=== PATIENT | male | born 1985 | race Caucasian/White ===

== ENCOUNTER 2023-07-02 10:27 | Outpatient (CLI) | payer BC, SELFPAY ==
[2023-07-02 11:02] LABS: Hematocrit 45.2 % (42.0-52.0); Hemoglobin 15.4 g/dL (14.0-18.0); Mean Corpuscular HGB Conc 34.1 g/dl (32-36); Mean Corpuscular Volume 90.9 fl (80-100); Mean Platelet Volume 9.2 fl (7.4-10.4); Platelet Count Result 303 k/mm3 (150-375); Red Blood Count 4.97 M/mm3 (4.6-6.20); Red Cell Distribution Width 12.4 % (11.5-14.5); White Blood Count 5.9 K/mm3 (4.5-10.0)
[2023-07-02 11:12] LABS: Hemoglobin A1C 5.6 % (<5.7)
[2023-07-02 11:15] LABS: Alanine Aminotransferase 48 U/L (6-50); Albumin Level 4.7 g/dL (3.5-5.1); Alkaline Phosphatase 49 U/L (38-126); Anion Gap 7 mmol/L (4-12); Aspartate Amino Transferase 32 U/L (17-59); Bilirubin,Total 0.7 mg/dL (0.2-1.3); Blood Urea Nitrogen 13 mg/dL (9-20); Calcium 9.6 mg/dL (8.4-10.2); Carbon Dioxide 27 mmol/L (22-30); Chloride 105 mmol/L (98-107); Cholesterol 318 mg/dL (0-200); Estimated Glomerular Filt Rate > 60; Glucose 99 mg/dL (65-110); HDL Direct 44 mg/dL; Potassium 4.4 mmol/L (3.4-5.0); Sodium 139 mmol/L (137-145); Triglycerides 217 mg/dL (<150)
[2023-07-02 11:26] LABS: LDL Cholesterol Direct 229 mg/dL
[2023-07-02 11:54] LABS: HIV 1/2 Ab P24 Ag Result Negative (Negative)
== END 2023-07-02 10:28 | disposition home or self-care (01) ==
LOC: ANHLAB 10:30
PROVIDERS: PCP Nurse Practitioner Family; Visit Provider Nurse Practitioner Family
DX: Z13.228 Encounter for screening for other metabolic disorders (principal); Z13.1 Encounter for screening for diabetes mellitus; Z68.33 Body mass index [BMI] 33.0-33.9, adult; Z11.4 Encounter for screening for human immunodeficiency virus [HIV]; Z13.220 Encounter for screening for lipoid disorders; Z13.0 Encounter for screening for diseases of the blood and blood-forming organs and certain disorders involving the immune mechanism; E89.0 Postprocedural hypothyroidism; Z13.29 Encounter for screening for other suspected endocrine disorder
CPT/HCPCS: 36415; 80053; 80061; 83036; 84443; 85027; 86703; G0432

== ENCOUNTER 2023-10-09 11:06 | Outpatient (CLI) | payer BC, SELFPAY ==
[2023-10-09 11:49] LABS: Hematocrit 39.7 % (42.0-52.0); Hemoglobin 13.9 g/dL (14.0-18.0); Mean Corpuscular Hemoglobin 31.3 pg (26-34); Mean Corpuscular Volume 89.4 fl (80-100); Mean Platelet Volume 9.7 fl (7.4-10.4); Platelet Count Result 265 k/mm3 (150-375); Red Blood Count 4.44 M/mm3 (4.6-6.20); Red Cell Distribution Width 12.3 % (11.5-14.5); White Blood Count 7.3 K/mm3 (4.5-10.0)
[2023-10-09 12:03] LABS: Alanine Aminotransferase 26 U/L (6-50); Albumin Level 4.6 g/dL (3.5-5.1); Alkaline Phosphatase 51 U/L (38-126); Anion Gap 8 mmol/L (4-12); Aspartate Amino Transferase 24 U/L (17-59); Bilirubin,Total 0.7 mg/dL (0.2-1.3); Blood Urea Nitrogen 11 mg/dL (9-20); Calcium 9.2 mg/dL (8.4-10.2); Carbon Dioxide 27 mmol/L (22-30); Chloride 107 mmol/L (98-107); Cholesterol 140 mg/dL (0-200); Estimated Glomerular Filt Rate > 60; Glucose 79 mg/dL (65-110); HDL Direct 40 mg/dL; Potassium 4.1 mmol/L (3.4-5.0); Sodium 142 mmol/L (137-145); Triglycerides 106 mg/dL (<150)
[2023-10-09 12:14] LABS: LDL Cholesterol Direct 86 mg/dL
== END 2023-10-09 11:07 | disposition home or self-care (01) ==
LOC: ANHLAB 11:08
PROVIDERS: PCP Nurse Practitioner Family; Visit Provider Nurse Practitioner Family
DX: E78.5 Hyperlipidemia, unspecified (principal); E89.0 Postprocedural hypothyroidism; G47.00 Insomnia, unspecified; Z00.00 Encounter for general adult medical examination without abnormal findings; Z68.33 Body mass index [BMI] 33.0-33.9, adult; E04.9 Nontoxic goiter, unspecified; Z82.49 Family history of ischemic heart disease and other diseases of the circulatory system
CPT/HCPCS: 36415; 80053; 80061; 84443; 85027; 86141

== ENCOUNTER 2024-04-15 07:48 | Outpatient (CLI) | payer BC, SELFPAY ==
[2024-04-15 08:14] LABS: Hematocrit 42.8 % (42.0-52.0); Hemoglobin 14.5 g/dL (14.0-18.0); Mean Corpuscular HGB Conc 33.9 g/dl (32-36); Mean Corpuscular Hemoglobin 30.4 pg (26-34); Mean Corpuscular Volume 89.7 fl (80-100); Mean Platelet Volume 9.2 fl (7.4-10.4); Platelet Count Result 308 k/mm3 (150-375); Red Blood Count 4.77 M/mm3 (4.6-6.20); Red Cell Distribution Width 12.9 % (11.5-14.5); White Blood Count 7.2 K/mm3 (4.5-10.0)
[2024-04-15 10:36] LABS: Alanine Aminotransferase 29 U/L (6-50); Albumin Level 4.6 g/dL (3.5-5.1); Alkaline Phosphatase 53 U/L (38-126); Anion Gap 4 mmol/L (4-12); Aspartate Amino Transferase 26 U/L (17-59); Bilirubin,Total 0.9 mg/dL (0.2-1.3); Blood Urea Nitrogen 15 mg/dL (9-20); Calcium 9.1 mg/dL (8.4-10.2); Carbon Dioxide 27 mmol/L (22-30); Chloride 105 mmol/L (98-107); Cholesterol 210 mg/dL (0-200); Estimated Glomerular Filt Rate > 60; Glucose 102 mg/dL (65-110); HDL Direct 45 mg/dL; Potassium 4.1 mmol/L (3.4-5.0); Sodium 136 mmol/L (137-145); Triglycerides 155 mg/dL (<150)
[2024-04-15 10:47] LABS: LDL Cholesterol Direct 124 mg/dL
== END 2024-04-15 07:49 | disposition home or self-care (01) ==
LOC: ANHLAB 07:49
PROVIDERS: PCP Nurse Practitioner Family; Visit Provider Nurse Practitioner Family
DX: D64.9 Anemia, unspecified (principal); E78.5 Hyperlipidemia, unspecified; E89.0 Postprocedural hypothyroidism; Z68.33 Body mass index [BMI] 33.0-33.9, adult; M54.9 Dorsalgia, unspecified; G89.29 Other chronic pain; G47.00 Insomnia, unspecified
CPT/HCPCS: 36415; 80053; 80061; 84443; 85027

== ENCOUNTER 2024-09-08 09:49 | Outpatient (CLI) | payer BC, SELFPAY ==
--- NOTE | ~2024-09-08 | XR_ITS ---
Right foot Technique: AP and lateral views were obtained. Clinical History: Pain Findings: No acute fracture or dislocation is seen. Osseous alignment is anatomic. Joint spaces are p reserved without erosive or degenerative change. Soft tissues are unremarkable. Impression: Unremarkable right foot radiographs. Reviewed, dictated and finalized at location . Impression: Unremarkable right foot radiographs.
[2024-09-08 10:17] LABS: Hematocrit 43.8 % (42.0-52.0); Hemoglobin 14.9 g/dL (14.0-18.0); Mean Corpuscular Hemoglobin 30.5 pg (26-34); Mean Corpuscular Volume 89.8 fl (80-100); Platelet Count Result 310 k/mm3 (150-375); Red Blood Count 4.88 M/mm3 (4.6-6.20); Red Cell Distribution Width 12.2 % (11.5-14.5); White Blood Count 6.3 K/mm3 (4.5-10.0)
[2024-09-08 11:23] LABS: Alanine Aminotransferase 33 U/L (6-50); Albumin Level 4.8 g/dL (3.5-5.1); Alkaline Phosphatase 50 U/L (38-126); Anion Gap 10 mmol/L (4-12); Aspartate Amino Transferase 28 U/L (17-59); Bilirubin,Total 0.8 mg/dL (0.2-1.3); Blood Urea Nitrogen 16 mg/dL (9-20); Calcium 9.2 mg/dL (8.4-10.2); Carbon Dioxide 24 mmol/L (22-30); Chloride 106 mmol/L (98-107); Cholesterol 200 mg/dL (0-200); Estimated Glomerular Filt Rate > 60; Glucose 102 mg/dL (65-110); HDL Direct 47 mg/dL; Potassium 4.5 mmol/L (3.4-5.0); Sodium 140 mmol/L (137-145); Total Protein 8.1 g/dL (6.3-8.2); Triglycerides 155 mg/dL (<150)
[2024-09-08 11:37] LABS: LDL Cholesterol Direct 107 mg/dL
== END 2024-09-08 09:50 | disposition home or self-care (01) ==
LOC: ANHLAB 09:51
PROVIDERS: PCP Nurse Practitioner Family; Visit Provider Nurse Practitioner Family
DX: E78.5 Hyperlipidemia, unspecified (principal); Z91.82 Personal history of military deployment; E89.0 Postprocedural hypothyroidism; Z68.33 Body mass index [BMI] 33.0-33.9, adult; D64.9 Anemia, unspecified; M54.9 Dorsalgia, unspecified; G89.29 Other chronic pain; G47.9 Sleep disorder, unspecified; G47.10 Hypersomnia, unspecified; Z00.00 Encounter for general adult medical examination without abnormal findings; M79.671 Pain in right foot
CPT/HCPCS: 36415; 73620; 80053; 80061; 84443; 85027

== ENCOUNTER 2024-10-08 10:13 | Outpatient (CLI) | payer BC, SELFPAY ==
--- NOTE | 2024-11-03 20:52 | P.SLEEP_ITS ---
Sleep Study Date of Study: 10/08/24 Ordering Provider: Amy Márquez APRN Interpreting Physician: Esther Rodriguez DO Sleep Study Type: Polysomnogram Height: 1.88 m Weight: 117.934 kg Body Mass Index: 33.3 Neck Circumference (inches): 18 [place]: 7 Reason for Sleep Study Daytime hypersomnia Sleep History The patient is a 39-year-old male who had a sleep study ordered by his primary care physician for evaluation of sleep apnea. The patient occasionally awakens from sleep short of breath. He occasionally awakens at night with heartburn, belching, or cough. He frequently snores, and it is loud enough that others complain. He frequently has trouble sleeping when he has a cold. He occasionally wakes up gasping for air throughout the night. He frequently has breathing problems at night observed by himself or others. He occasionally sweats excessively at night. He frequently has heart palpitations or irregular heartbeats during the night. He rarely falls asleep during the day and never while driving. He rarely experiences loss of muscle tone when extremely emotional. He frequently has trouble at school or work due to sleepiness. He denies sleep paralysis. He occasionally experiences vivid dreamlike scenes upon awakening or falling asleep. He denies feeling afraid of going to sleep. He occasionally has nightmares. He occasionally remembers his dreams. He frequently has thoughts racing through his mind. He frequently feels sad, depressed, and anxious. He frequently has muscular tension. He frequently notices parts of his body jerk. He occasionally kicks during the night. He frequently has crawling and aching feelings in his legs and frequently has leg pain during the night. He rarely grinds his teeth during sleep and rarely awakens with morning jaw pain. He is constantly bothered by pain during the day but frequently awakened by pain during the night. He constantly wakes up feeling stiff in the morning. He frequently wakes up with sore or achy muscles. He frequently wakes up with pain in the neck, back, spine, and other joints. He goes to bed at 8 p.m. every night. It can take a few minutes up to several hours for him to fall asleep. He wakes up a few times throughout the night to u rinate and is able to fall back asleep within a few minutes. He wakes up between 4 to 7 a.m. every morning. He typically gets 6 to 8 hours of sleep per night. He will stay in bed for 20 to 30 minutes after waking up in the morning. He currently lives with his and children. He denies consuming any caffeinated beverages within 2 hours of bedtime. He denies engaging in physical exercise before bedtime. He will watch television before falling asleep. He denies taking naps in the afternoon or the evening. He consumes three cups of a caffeinated beverage per day. He consumes two to four beers per week or less. He quit smoking cigarettes 3 years ago. He will occasionally smoke cigars. He denies recreational drug use. [facility] Family History Family History Mother Lung cancer Father Hypertension Social History Social History Smoking status: Former smoker Tobacco type: cigars Alcohol intake: current Drinks per week: 2 Substance use: never Substance use type: does not use Medications Home Medications ?Medication ?Instructions ?Recorded ?Confirmed ?Type atorvastatin 20 mg tablet 20 mg PO QHS #90 tabs 09/08/24 09/08/24 Rx cetirizine 10 mg tablet 10 mg PO DAILY #90 tabs 09/08/24 09/08/24 Rx fluticasone propionate 50 2 spray intranasal DAILY #16 grams 09/08/24 09/08/24 Rx mcg/actuation nasal spray,suspension meloxicam 7.5 mg tablet See Rx Instructions PO DAILY #180 09/08/24 09/08/24 Rx tabs Sleep Procedure A full night polysomnogram using the [employer] multi-channel system recorded the standard physiologic parameters including EEG, EOG, submentalis EMG, anterior tibialis EMG, EKG, body position, nasal and oral airflow using nasal pressure sensor and thermistor.? Respiratory parameters of chest and abdominal movements were recorded with Respiratory Inductance Plethysmography belts. Oxygen saturation was recorded by pulse oximetry. Video monitoring was also performed. Sleep stages, periodic limb movements, and EEG arousals were scored in 30 second epochs according to the criteria of the AASM Scoring Manual. The Apnea-Hypopnea Index was calculated using CMS guidelines for definition of hypopnea with 4% O2 desaturations while scoring respiratory events. Sleep Architecture The total recording time was 439.1 minutes.? The total sleep time was 391.5 minutes. Sleep latency was 4.3 minutes. REM latency was 146.0 minutes. Sleep efficiency was 89.2%. The patient had 29 awakenings for an awakening index of 4.4. Wake after sleep onset time was 43.0 minutes. The patient spent 35.5 minutes, 9.1% of total sleep time in Stage N1. The patient spent 261.5 minutes, 66.8% in Stage N2. The patient spent 38.0 minutes, 9.7% in Stage N3. The patient spent 56.5 minutes, 14.4% in Stage REM sleep. Respiratory Analysis The patient had 30 hypopneas for an overall Apnea Hypopnea Index of 4.6. The REM Apnea Hypopnea Index was 21.2. The NREM Apnea Hypopnea Index was 2.1. The patient had a Central Apnea Hypopnea Index of 0. There was no evidence of Shaun-Weber Respirations. Arousals There were 163 total arousals for an arousal index of 25.0. There were 86 spontaneous arousals for an index of 13.2. There were 2 arousals due to respiratory events for an index of 0.3. There were 34 arousals due to periodic limb movements for an index of 5.2.? There were 41 arousals due to isolated limb movements for an index of 6.3. Periodic Limb Movements The patient had 66 isolated limb movements with an index of 10.1. The patient had 71 periodic limb movements with an index of 10.9. Patient had a total of 137 limb movements with a total limb movement index of 21.0. Oximetry Data The patient had an average oxygen saturation of 92.0% in sleep with a minimum oxygen saturation of 84.0% and a maximum oxygen saturation of 96.0%. The patient had 32 oxygen desaturations that were 4% or greater resulting in an Oxygen Desaturation Index of 4.9.? The patient spent 4.8 minutes, 1.1% of total sleep time with an oxygen saturation below 88%. Snoring Profile Mild snoring was present intermittently throughout the study. Cardiac Profile The EKG showed normal sinus rhythm with rare PVCs. The patient had an average pulse rate of 66.6 bpm with a minimum pulse of rate of 52.0 bpm and a maximum pulse rate of 97.0 bpm.? EEG Profile No signs of seizure activity seen. 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 Assessment and Plan Assessment and Plan (1) Sleep disturbances: Code(s): G47.9 - Sleep disorder, unspecified Status: Acute Assessment and Plan: The patient had an overall AHI of 4.6 with desaturation down to 84%. This is not consistent with sleep-disordered breathing. The patient's AHI is just below the cutoff for qualifying for CPAP (AHI of 5 or greater). I recommend having the patient do a home study in a few months for re-evaluation of sleep apnea. Alpha intrusion, also known as alpha-delta sleep, is an EEG finding where alpha waves are present during NREM sleep. Alpha waves are typically present in wake. While alpha intrusion can be seen in a small subset of healthy individuals, it is often found in patients with depression, fibromyalgia, chronic pain and other sleep disorders. Clinically, alpha intrusion presents as non-restorative sleep. Treatment of alpha intrusion is directed towards the underlying cause. Data The data obtained during this sleep study is adequate for interpretation. Certification This sleep study has been reviewed by a board certified sleep medicine phys ician.
[2024-11-05 12:42] VITALS: BMI 33.3
== END 2024-10-09 06:17 | disposition home or self-care (01) ==
PROVIDERS: PCP Nurse Practitioner Family; Visit Provider Nurse Practitioner Family
DX: G47.9 Sleep disorder, unspecified (principal); G47.10 Hypersomnia, unspecified
CPT/HCPCS: 95810